=== PATIENT | male | born 1965 | race Caucasian/White ===

== ENCOUNTER 2016-03-25 01:05 | Day surgery (SDC) | payer OTHER ==
[~2016-03-25] VITALS: Ht 190.5 cm; Wt 89.0 kg
[2016-03-25] VITALS (15 sets, daily range): BP systolic 129–175; BP diastolic 90–109; PULSE 93–120; RESP 13–24; O2SAT 93–97
[~2016-03-25 01:05] MED LIST: ATOR80TA PO; DABI150C PO; DILT180C9 PO; DILT240C87 PO; LOSA50TA37 PO; NITR0.4T SL; VIC5 PO
--- NOTE | 2016-03-25 06:00 | NUR ---
ADMISSION NOTE MALE PT ADMITTED FOR ABLATION . DISCUSSED PLAN OF CARE WITH PT AND FAMILY. SEE ADMIT AND FLOW SHEET
[2016-03-25] MEDS ORDERED: 0.9% Sodium Chloride 1,000 ML IV SCH (06:40)
[2016-03-25 06:43] LABS: BASOPHILS % (AUTO) 0.4 % (0-3); EOSINOPHILS % (AUTO) 1.2 % (0-5); MONOCYTES % (AUTO) 11.4 % (4-12); Mean Corpuscular Hemoglobin 32.8 pg (27.0-35.0); Mean Corpuscular Volume 96.4 fL (81-100); NEUTROPHILS % (AUTO) 59.7 % (40-74); Platelet Count 164 bil/L (150-400)
[2016-03-25 07:00] LABS: INR 0.97 ratio
[2016-03-25] MEDS ORDERED: DILT420C10 PO (07:16)
[2016-03-25] MEDS ORDERED: IBUP-1827 PO (07:16)
[2016-03-25] MEDS ORDERED: NITR0.4T6 SL (07:19)
[2016-03-25] MEDS ORDERED: HYDR-4003 PO (07:19)
[2016-03-25] MEDS ORDERED: Heparin 5,000 Units/500 mL NS Premix IV ONE (08:01)
[2016-03-25] MEDS ORDERED: fentaNYL-PF 50 mCg/mL 2 mL Inj ONE (08:19)
[2016-03-25] MEDS ORDERED: Heparin 1,000 Unit/mL 10 mL Inj ONE (08:27)
[2016-03-25] MEDS ORDERED: 0.9% Sodium Chloride 1,000 ML ONE (08:27)
[2016-03-25] MEDS ORDERED: Ondansetron 2 mg/mL 2 mL Inj IVPUSH PRN (09:55)
--- NOTE | 2016-03-25 10:00 | NUR ---
POST PROCEDURE NOTE RETURNED FROM CHIEF EXECUTIVE OFFICER. SEE FLOW SHEET
[2016-03-25] MEDS ORDERED: Dabigatran 150 mg Capsule PO ONE (11:35)
--- NOTE | 2016-03-25 15:00 | NUR ---
DISCHARGE NOTE UP IN ROOM. GROIN SLIGHTLY TENDER. NO BLEEDING OR CHANGES NOTED. INSTRUCTIONS GIVEN. HOME WITH SISTER
--- NOTE | 2016-03-25 20:57 | PROCED ---
[address] [address] PROCEDURE NOTE PATIENT: SYLVIA GALE : 1965 MR#: [id number] ADMIT: 03/25/2016 JOB ID: [id number] DATE OF SERVICE: 03/25/2016 PREOPERATIVE DIAGNOSIS(ES): Atrial flutter. POSTOPERATIVE DIAGNOSIS(ES): Sinus rhythm. PROCEDURES PERFORMED: 1. Comprehensive electrophysiology study with left atrial pacing recording via the coronary sinus catheter. 2. Three-dimensional electroanatomic mapping using the CARTO 3 system. 3. Atrial flutter ablation (atrial ablation; cavotricuspid isthmus ablation). 4. Fluoroscopy. SURGEON: Pinsetter Mechanic Automatic: Carlos Cedeno MD., Electrophysiology. ASSISTANTS: 1. Noel Galaviz. 2. Shanika Wen. ANESTHESIA: Bolus dosing of Versed and fentanyl were utilized for an appropriate level of sedation. INDICATION: The patient is a pleasant 51-year-old man with known coronary artery disease, and now symptomatic drug refractory atrial flutter. After discussion of the risks and benefits of catheter-based mapping and ablation, he opted to proceed. PROCEDURAL DESCRIPTION: Following informed consent, the patient was taken to the EP laboratory. After an appropriate level of sedation was induced, he was prepped and draped in the usual sterile fashion. The right inguinal region was infused with 1% lidocaine. Then, using modified Seldinger technique, one 8 and two 7-Telugu sheaths were inserted through the right femoral vein. Under fluoroscopic guidance, a deflectable decapolar catheter was advanced to the coronary sinus with the most proximal bipolar at the os of the sinus. A 20 Livewire catheter was used to encircle the tricuspid annulus. A J curve Smart Touch irrigated ablation catheter was brought to the field for initial three-dimensional electroanatomic map of the right atrium, tricuspid annulus, cavotricuspid isthmus. Entrainment was undertaken from the cavotricuspid isthmus showing indeed this was an isthmus-dependent flutter with a post pacing interval minus tachycardic cycle length of less than 30 msec. This was a clockwise reverse typical isthmus dependent flutter. A linear series of ablations was therefore performed from the ventricular vein to the IVC aspect of the cavotricuspid isthmus, ultimately leading to termination of the flutter and resumption of sinus rhythm. Pacing was undertaken from the coronary sinus os while monitoring the atrial activation pattern on the Livewire catheter. High voltage electrograms were targeted and ultimately medial to lateral block was confirmed. Lateral tibial block was confirmed. A 20-30 minutes waiting period was undertaken during which bidirectional block was confirmed. During the course of this study, we did complete a comprehensive electrophysiology study with right atrial pacing recording, right ventricle paced recording, His bundle recording, left atrial pacing recording, and coronary sinus catheter. All catheters and sheaths were removed. Manual pressure was held for hemostasis. The patient was transferred to the [facility] for monitoring, bedrest and discharge. Of note, a small right groin hematoma was identified at the onset of the case. Manual pressure was held and right groin ultrasound was performed failing to reveal any pseudoaneurysm or AV fistula. COMPLICATIONS: None. As above, small right groin hematoma. FINDINGS: 1. Baseline rhythm is flutter. Post ablation, he is in sinus rhythm with an RR interval 667 msec, AZ 2 msec, QRS 88 msec, QT 360 msec. 2. Retrograde conduction. No VA conduction was seen. 3. Intracardiac intervals: Atrial 103 msec, HV is 51 msec. 4. Cavotricuspid isthmus ablation as described above with bidirectional block, specifically, transisthmus time was 165 msec in the lateral to medial direction and 172 msec in medial to lateral direction. IMPRESSION: Successful cavotricuspid isthmus ablation for reverse typical atrial flutter. PLAN: 1. Bed rest x4 hours. 2. Resumption of anticoagulation. 3. Decrease diltiazem extended release to 180 mg once daily. 4. Follow up with Tim Garcia in four weeks and thereafter with Dr. Brooke. ATTENDING STATEMENT: Carlos Cedeno MD, electrophysiology attending, was present for and supervised/performed all aspects of this procedure.
--- NOTE | 2016-03-26 10:58 | DRSVH ---
CORRECTED ACCESSION/PLACER NUMBER ON 03/26/16 PROCEDURE: US DUPLEX DOPPLER UNILATERAL LEG ARTERIES, RIGHT INDICATIONS: POSSIBLE PSEUDOANEURYSM s/p rt groin cath access TECHNIQUE: Color and pulse Doppler interrogation was performed of the right lower extremity arterial system, wit h image documentation. COMPARISON: None. FINDINGS: Limited sonography of the right groin demonstrates no abnormalities. No fluid collection or masses a re seen. Normal appearance of the right common femoral artery and vein as is demonstrated with spect ral and color-flow Doppler. Complex, avascular mass within the superficial groin soft tissues measur ing up to 6.1 cm likely a hematoma. Impression: No right groin pseudoaneurysm. Dictated by: Thad ALEMAN Interpreted: Sandra Beard MD on 03/25/2016 at 11:46 Transcribed by: BIJU on 03/25/2016 at 11:47 Approved by: Sandra Beard M.D. on 03/25/2016 at 15:16
== END 2016-03-25 23:59 | disposition home or self-care (01) ==
LOC: SOUO 01:05
PROVIDERS: ATTEND Internal Medicine Cardiovascular Disease
DX: I48.3 Typical atrial flutter (principal); I25.111 Atherosclerotic heart disease of native coronary artery with angina pectoris with documented spasm; Z79.82 Long term (current) use of aspirin; E78.5 Hyperlipidemia, unspecified; I25.2 Old myocardial infarction; Z79.01 Long term (current) use of anticoagulants
CPT/HCPCS: 36415; 80048; 85025; 85610; 93005; 93613; 93621; 93653; 93926; 99152; 99153; C1730; C1731; C1732; C1893; J0131; J1644; J2250; J3010; J7030